=== PATIENT | male | born 1995 | race Hispanic/Latino ===

== ENCOUNTER 2017-10-21 03:51 | Emergency (ER) | payer OTHER ==
[2017-10-21] MEDS ORDERED: Sodium Chloride 0.9% 1,000 ML IV STA (04:08)
[2017-10-21 04:18] VITALS: BP 162/63; PULSE 130; TEMP 97.3; O2SAT 98
[2017-10-21 04:47] LABS: BASO % 0.5 % (0.0-2.0); EOS # 0.1 K/uL (0.0-0.7); HEMOGLOBIN 16.3 g/dL (12.0-18.0); LYMPH # 2.5 K/uL (1.0-4.3); LYMPH % 32.9 % (20.0-40.0); MEAN CELL VOLUME 87.5 fl (80.0-94.0); MEAN CORPUSCULAR HGB CONC 35.5 g/dL (33.0-37.0); MEAN PLATELET VOLUME 7.1 fl (7.2-11.7); MONO # 0.3 K/uL (0.0-0.8); MONO % 4.5 % (0.0-10.0); NEUT # 4.7 K/uL (1.8-7.0); NEUT % 61.1 % (50.0-75.0); NRBC % 0.1 % (0.0-0.0); RBC 5.25 Mil/uL (4.40-5.90); RED CELL DISTRIBUTION WIDTH 12.9 % (11.5-14.5); WHITE BLOOD COUNT 7.7 K/uL (4.8-10.8)
--- NOTE | 2017-10-21 04:52 | ED PDOC ---
HPI: Psych/Substance Abuse Time Seen by Provider: 10/21/17 03:56 Chief Complaint (Nursing): Substance Abuse Chief Complaint (Provider): Substance Abuse History Per: Patient Additional Complaint(s): 22 y/o male is brought to the ED by EMS for evaluation of possible overdoes. Patient was administered 2 cans of narcan by EMS. Patient reports visiting [place] with a friend. Reports snorting white powder of which he states he was uncertain what it was. On n arrival to ED patient has no complaints and anxious. States drinking alcohol tonight. Denies any suicidal intent, or any further medical complaints. Past Medical History Reviewed: Historical Data, Nursing Documentation, Vital Signs Vital Signs: Last Vital Signs Temp 97.3 F L 10/21/17 04:17 Pulse 130 H 10/21/17 04:17 Resp BP 162/63 H 10/21/17 04:17 Pulse Ox 98 10/21/17 04:17 - Medical History PMH: No Chronic Diseases - Surgical History Surgical History: No Surg Hx - Family History Family History: States: Unknown Family Hx - Social History Alcohol: Social Drugs: Other - Allergies Allergies/Adverse Reactions: Allergies Allergy/AdvReac Type Severity Reaction Status Date / Time No Known Allergies Allergy Verified 10/21/17 04:03 Review of Systems ROS Statement: Except As Marked, All Systems Reviewed And Found Negative (As per HPI, otherwise negative) Constitutional: Positive for: Other (Overdose) Physical Exam - Reviewed Nursing Documentation Reviewed: Yes Vital Signs Reviewed: Yes - Physical Exam Appears: Positive for: Well, Non-toxic, No Acute Distress Head Exam: Positive for: ATRAUMATIC, NORMAL INSPECTION, NORMOCEPHALIC Skin: Positive for: Normal Color, Warm, Dry Eye Exam: Positive for: EOMI, Normal appearance, PERRL ENT: Positive for: Normal ENT Inspection Neck: Positive for: Normal, Painless ROM, Supple Cardiovascular/Chest: Positive for: Tachycardia. Negative for: Murmur Respiratory: Positive for: Normal Breath Sounds. Negative for: Accessory Muscle Use, Respiratory Distress Gastrointestinal/Abdominal: Positive for: Normal Exam, Bowel Sounds, Soft. Negative for: Tenderness Back: Positive for: Normal Inspection Extremity: Positive for: Normal ROM. Negative for: Deformity Neurologic/Psych: Positive for: Alert, Oriented (x3) - Laboratory Results Result Diagrams: 10/21/17 04:37 10/21/17 04:37 - ECG O2 Sat by Pulse Oximetry: 98 (RA) Pulse Ox Interpretation: Normal Medical Decision Making Medical Decision Making: Time: 04:07 Initial Impression: 22 y/o male with possible overdose Plan: EKG Alcohol serum CMP Drug screen CBC w/ differential Sodium chloride 1L IV Heplock insertion Accucheck Reevaluation Time: 06:30 Patient is medically stable, alert and oriented x3 and is stable for discharge. Clinical Impression: Overdose Scribe Attestation: Documented by Allison Harris acting as a scribe for Mauricio Ochoa MD. Scribe Attestation: All medical record entries made by the Scribe were at my direction and personally dictated by me. I have reviewed the chart and agree that the record accurately reflects my personal performance of the history, physical exam, medical decision making, and the department course for this patient. I have also personally directed, reviewed, and agree with the discharge instructions and disposition. Disposition - Clinical Impression Clinical Impression: Opiate overdose, Alcohol intoxication - Patient ED Disposition Is Patient to be Admitted: No - Disposition Disposition: Routine/Home Disposition Time: 06:00 Condition: IMPROVED Instructions: Narcotic Overdose Forms: [employer] (Japanese)
[2017-10-21 04:57] LABS: ALB/GLOB RATIO 1.4 (1.0-2.1); ALBUMIN 5.4 g/dL (3.5-5.0); ALT/SGPT 34 U/L (21-72); AST/SGOT 38 U/L (17-59); BLOOD UREA NITROGEN 15 mg/dl (9-20); CALCIUM 9.6 mg/dL (8.4-10.2); GFR AFRICAN-AMERICAN > 60; GFR NON-AFRICAN AMERICAN > 60
--- NOTE | 2017-10-21 10:19 | CARD ---
APPROVED REPORT EKG Measurement Heart [id number] <Conclusion> Sinus tachycardia Otherwise normal ECG
== END 2017-10-21 06:46 | disposition home or self-care (01) ==
LOC: H.ER 03:51
DX: T40.601A Poisoning by unspecified narcotics, accidental (unintentional), initial encounter (principal); F10.129 Alcohol abuse with intoxication, unspecified; Y90.7 Blood alcohol level of 200-239 mg/100 ml
CPT/HCPCS: 80053; 80320; 85025; 93005; 99283; J7040